=== PATIENT | male | born 1955 | race Caucasian/White ===

== ENCOUNTER 2018-01-24 03:15 | Emergency (ER) | payer SELFPAY ==
[2018-01-24 03:23] VITALS: TEMP 97.9
[2018-01-24 04:03] LABS: PLATELET COUNT 211 10^3/uL (150-400)
--- NOTE | 2018-01-24 04:35 | EDPHY ---
H & P Stated Complaint: weeping wounds bilat legs Time Seen by Provider: 01/24/18 04:01 HPI/ROS: HPI The patient presents brought in by ambulance for pain from his leg wounds. He says he has had these for several years, though while at the long-term today the pain got worse in his right leg greater than left. It is achy in nature, moderate in severity and improved with elevation. He has not had any new leg swelling, new redness, fevers or chills. He has not had a fall recently. He does say about 2 weeks ago he fell out of his motorized scooter and thinks this could be contributing to his pain currently. He used to stay at a long-term in [place] and follow up with a wound care doctor there, he is not seeing anyone locally for his wounds and therefore has not been putting on dressings regularly. REVIEW OF SYSTEMS Constitutional: No fever, no chills. Eyes: No discharge. ENT: No sore throat. Cardiovascular: No chest pain, no palpitations. Respiratory: No cough, no shortness of breath. Gastrointestinal: No abdominal pain, no vomiting. Genitourinary: No hematuria. Musculoskeletal: No back pain. Skin: No rashes. Neurological: No headache. PMHx: Diabetes, hypertension, chronic venous stasis Soc Hx: Homeless, currently residing at [facility] PHYSICAL General Appearance: Alert, no distress Eyes: Pupils equal and round no pallor or injection ENT, Mouth: Mucous membranes moist Respiratory: There are no retractions, lungs are clear to auscultation Cardiovascular: Regular rate and rhythm Gastrointestinal: Abdomen is soft and non-tender, no masses, bowel sounds normal Neurological: A&O, moves all extremities Skin: Warm and dry, bilateral lower extremities with shiny erythema to both shins with plaques present anteriorly which are whitish in raised Musculoskeletal: Neck is supple non tender Extremities: symmetrical, full range of motion, 2+ DP pulses Psychiatric: Patient is oriented X 3, there is no agitation Source: Patient Exam Limitations: No limitations - Personal History Current Tetanus/Diphtheria Vaccine: Yes Current Tetanus Diphtheria and Acellular Pertussis (TDAP): Yes - Medical/Surgical History Hx Asthma: Yes Hx Chronic Respiratory Disease: No Hx Diabetes: Yes Hx Cardiac Disease: No Hx Renal Disease: No Hx Cirrhosis: No Hx Alcoholism: No Hx HIV/AIDS: No Hx Splenectomy or Spleen Trauma: No Other PMH: DM, HTN, tonsillectomy - Social History Smoking Status: Current every day smoker Constitutional: Initial Vital Signs Temperature (C) 36.6 C 01/24/18 03:20 Heart Rate 89 01/24/18 03:20 Respiratory Rate 16 01/24/18 03:20 Blood Pressure 168/93 H 01/24/18 03:20 O2 Sat (%) 96 01/24/18 03:20 O2 Delivery Mode Room Air Allergies/Adverse Reactions: No Known Allergies Allergy (Unverified 01/24/18 03:25) Home Medications: Medication Instructions Recorded Atenolol 01/24/18 Levemir 01/24/18 Lisinopril 01/24/18 Medical Decision Making Differential Diagnosis: This is a 63-year-old man with homelessness, diabetes on insulin, hypertension, chronic venous stasis who presents with painful right greater than left lower extremity. On exam, he does have significant venous stasis changes, legs are warm with normal pulses and good sensation. There is no indication of cellulitis has there are no areas of warmth. There is no abscess given no areas of fluctuance. He does not have asymmetric edema making DVT unlikely. I feel his symptoms stem from his chronic wounds, his fall 2 weeks ago may have made his symptoms worse. He would benefit from wound care which he is not currently getting. 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 He is in agreement with this plan. I did check labs to evaluate for any signs of infection, WBC count was normal. Glucose was 300 with no anion gap. - Data Points Laboratory Results: Laboratory Results 01/24/18 03:35 01/24/18 03:35 01/24/18 01/24/18 01/24/18 03:35 03:35 03:35 WBC 7.28 10^3/uL 10^3/uL (3.80-9.50) RBC 4.72 10^6/uL 10^6/uL (4.40-6.38) Hgb 14.1 g/dL g/dL (13.7-17.5) Hct 42.0 % % (40.0-51.0) MCV 89.0 fL fL (81.5-99.8) MCH 29.9 pg pg (27.9-34.1) MCHC 33.6 g/dL g/dL (32.4-36.7) RDW 13.3 % % (11.5-15.2) Plt Count 211 10^3/uL 10^3/uL (150-400) MPV 11.5 fL fL (8.7-11.7) Neut % (Auto) 68.8 % % (39.3-74.2) Lymph % (Auto) 20.5 % % (15.0-45.0) [place] % (Auto) 9.2 % % (4.5-13.0) Eos % (Auto) 0.8 % % (0.6-7.6) Baso % (Auto) 0.3 % % (0.3-1.7) Nucleat RBC Rel Count 0.0 % % (0.0-0.2) Absolute Neuts (auto) 5.01 10^3/uL 10^3/uL (1.70-6.50) Absolute Lymphs (auto) 1.49 10^3/uL 10^3/uL (1.00-3.00) Absolute Monos (auto) 0.67 10^3/uL 10^3/uL (0.30-0.80) Absolute Eos (auto) 0.06 10^3/uL 10^3/uL (0.03-0.40) Absolute Basos (auto) 0.02 10^3/uL 10^3/uL (0.02-0.10) Absolute Nucleated RBC 0.00 10^3/uL 10^3/uL (0-0.01) Immature Gran % 0.4 % % (0.0-1.1) Immature Gran # 0.03 10^3/uL 10^3/uL (0.00-0.10) VBG Lactic Acid 1.5 mmol/L mmol/L (0.7-2.1) Sodium 136 mEq/L mEq/L (135-145) Potassium 4.2 mEq/L mEq/L (3.5-5.2) Chloride 98 mEq/L mEq/L (97-110) Carbon Dioxide 25 mEq/l mEq/l (22-31) Anion Gap 13 mEq/L mEq/L (8-16) BUN 17 mg/dL mg/dL (7-23) Creatinine 0.7 mg/dL mg/dL (0.7-1.3) Estimated GFR > 60 Glucose 304 mg/dL H mg/dL (70-100) Calcium 8.6 mg/dL mg/dL (8.5-10.4) Total Bilirubin 0.7 mg/dL mg/dL (0.1-1.4) AST 16 IU/L L IU/L (17-59) ALT 27 IU/L IU/L (21-72) Alkaline Phosphatase 90 IU/L IU/L (38-126) Total Protein 6.2 g/dL L g/dL (6.3-8.2) Albumin 3.5 g/dL g/dL (3.5-5.0) Departure - Departure Disposition: Home, Routine, Self-Care Clinical Impression: Venous stasis dermatitis of lower extremity Hyperglycemia due to type 2 diabetes mellitus 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 We would like you to follow up with Dr. Bustillos in the [facility]. Please call her to arrange for an appointment to be seen. You should return to the emergency department if your worse in any way. Referrals: Lori Bustillos MD [Medical Doctor] - As per Instructions
[2018-01-24 07:08] VITALS: BP 114/85; PULSE 72; RESP 16; O2SAT 95
== END 2018-01-24 07:35 | disposition home or self-care (01) ==
DX: I87.8 Other specified disorders of veins (principal); E11.65 Type 2 diabetes mellitus with hyperglycemia; I10 Essential (primary) hypertension; J45.909 Unspecified asthma, uncomplicated; F17.200 Nicotine dependence, unspecified, uncomplicated; Z79.4 Long term (current) use of insulin

== ENCOUNTER 2018-02-03 18:31 | Inpatient (IN) | payer OTHER ==
[2018-02-03] MEDS ORDERED: VANCOMYCIN HCL/NORMAL SALINE 250 ML IV ONE (18:47)
--- NOTE | 2018-02-03 18:52 | EDPHY ---
H & P Stated Complaint: LEG INFECTIONS Time Seen by Provider: 02/03/18 18:31 HPI/ROS: CHIEF COMPLAINT: "My legs hurt" HISTORY OF PRESENT ILLNESS: 63-year-old homeless male history of uncontrolled diabetes, peripheral vascular disease, called 911 from the [facility] because of progressively worsening bilateral lower extremity pain, foul smell, decreased ability to ambulate. He ambulates at baseline with an electric scooter, is able to transfer and walk few steps however in this has become progressively worse. Patient was seen the ER approximately 9 days ago for same complaint states that in the past 3 days has become progressively worse. Denies fever chills. Denies flu-like symptoms. Denies nausea or vomiting. PRIMARY CARE PROVIDER: None REVIEW OF SYSTEMS: A ten point review of systems was performed and is negative with the exception of the items mentioned in the HPI PAST MEDICAL & SURGICAL HISTORY: Uncontrolled diabetes. Peripheral vascular disease. Limited mobility. SOCIAL HISTORY:Homeless. Daily tobacco abuse PHYSICAL EXAM (Prior to examination, patient consented to physical exam, hands were washed and my usual and customary physical exam procedures followed) 1) GENERAL: Obese, poorly kept, foul smelling, dirty 2) HEAD: Normocephalic, atraumatic 3) HEENT: Pupils equal, round, reactive to light bilaterally. Sclera anicteric. 4) NECK: Full range of motion, no meningeal signs. 5) LUNGS: Clear auscultation bilaterally, no wheezes, no rhonchi, no retractions. 6) HEART: Regular rate and rhythm, no murmur, no heave, no gallop. 7) ABDOMEN: No guarding, no rebound, no focal tenderness, negative McBurney's, negative Parker's, negative Rovsing's, negative peritoneal sign, 8) MUSCULOSKELETAL: Bilateral lower extremities: Positive fetid odor, Beefy red induration with necrotic tissue overlying the distal lower extremities, foul smell. No crepitus. DP and PT pulses are present and brisk. Distal capillary refill is brisk. Bilateral trench foot. 9) BACK: No CVA tenderness, no midline vertebral tenderness, no fluctuance, no step-off, no obvious trauma, no visual or palpable abnormality. 10) SKIN: No rash, no petechiae. 11) Psychiatric: Patient is oriented X 3, there is no agitation. DIFFERENTIAL DIAGNOSIS: In no particular include but limited to cellulitis, necrotizing fasciitis, abscess, DVT, osteomyelitis s - Personal History Current Tetanus/Diphtheria Vaccine: Unsure - Medical/Surgical History Hx Asthma: Yes Hx Chronic Respiratory Disease: No Hx Diabetes: Yes Hx Cardiac Disease: No Hx Renal Disease: No Hx Cirrhosis: No Hx Alcoholism: No Hx HIV/AIDS: No Hx Splenectomy or Spleen Trauma: No Other PMH: DM, HTN, tonsillectomy - Social History Smoking Status: Current every day smoker Constitutional: Initial Vital Signs Temperature (C) 36.9 C 02/03/18 18:36 Heart Rate 114 H 02/03/18 18:36 Respiratory Rate 16 02/03/18 18:36 Blood Pressure 171/98 H 02/03/18 18:36 O2 Sat (%) 97 02/03/18 18:36 O2 Delivery Mode Room Air Allergies/Adverse Reactions: No Known Allergies Allergy (Unverified 01/24/18 03:25) Home Medications: Medication Instructions Recorded Acetaminophen [Tylenol ES 500 mg 500 mg PO Q6 PRN 02/03/18 (*)] Albuterol [Ventolin Hfa Inhaler] 1 - 2 puffs IH Q4 PRN 02/03/18 Atenolol [Tenormin 50 mg (*)] 50 mg PO DAILY 02/03/18 Gabapentin [Neurontin 300 MG (*)] 300 mg PO BID 02/03/18 Insulin Detemir [Levemir Flextouch] 40 unit SQ BID 02/03/18 Lidocaine [Lidoderm] 1 - 2 each TP DAILY PRN 02/03/18 Lisinopril [Zestril 20 mg (*)] 20 mg PO DAILY 02/03/18 Metformin HCl [Metformin 1000 mg] 1,000 mg PO BID 02/03/18 traMADol [Ultram 50 mg (*)] 25 mg PO BID 02/03/18 Medical Decision Making - Diagnostics Imaging Results: Imaging Impressions Extremity Venous Study 02/03/18 18:44 Impression: No evidence of deep vein thrombosis in either lower extremity from the groin to the popliteal fossae. Images reviewed myself ED Course/Re-evaluation: 6:40 p.m.: Patient greeted on arrival by EMS. Discussed this case with Dr. Lazaro Valdez in the ER, secondary supervising physician. I reviewed old medical records. This is a homeless individual with uncontrolled diabetes, cellulitis, peripheral vascular disease, necrotic tissue to his bilateral lower extremities. Recommended admission. Will obtain cultures, initiate vancomycin. Doubt necrotizing fasciitis at this time. He has been informed that he is at risk of this. Patient has a history of chronic tobacco abuse. I spent greater than 3 min discussing tobacco cessation with the patient. 7:10 p.m.: Phone consultation with Dr. Narinder Courtney who will admit patient primarily. Requests surgical evaluation for more than likely debridement, also requests Invanz being added to his medication regimen. 7:13 p.m.: Phone consultation with Dr. Sean Aguilera who will consult for General surgery. Bilateral lower extremity x-rays will be obtained to evaluate for subcutaneous gas. - Data Points Laboratory Results: Laboratory Results 02/03/18 18:56 02/03/18 18:56 02/03/18 02/03/18 02/03/18 18:56 18:56 18:56 WBC 8.71 10^3/uL 10^3/uL (3.80-9.50) RBC 5.47 10^6/uL 10^6/uL (4.40-6.38) Hgb 16.0 g/dL g/dL (13.7-17.5) Hct 49.0 % % (40.0-51.0) MCV 89.6 fL fL (81.5-99.8) MCH 29.3 pg pg (27.9-34.1) MCHC 32.7 g/dL g/dL (32.4-36.7) RDW 13.4 % % (11.5-15.2) Plt Count 269 10^3/uL 10^3/uL (150-400) MPV 11.6 fL fL (8.7-11.7) Neut % (Auto) 78.1 % H % (39.3-74.2) Lymph % (Auto) 14.9 % L % (15.0-45.0) [place] % (Auto) 5.6 % % (4.5-13.0) Eos % (Auto) 0.6 % % (0.6-7.6) Baso % (Auto) 0.2 % L % (0.3-1.7) Nucleat RBC Rel Count 0.0 % % (0.0-0.2) Absolute Neuts (auto) 6.80 10^3/uL H 10^3/uL (1.70-6.50) Absolute Lymphs (auto) 1.30 10^3/uL 10^3/uL (1.00-3.00) Absolute Monos (auto) 0.49 10^3/uL 10^3/uL (0.30-0.80) Absolute Eos (auto) 0.05 10^3/uL 10^3/uL (0.03-0.40) Absolute Basos (auto) 0.02 10^3/uL 10^3/uL (0.02-0.10) Absolute Nucleated RBC 0.00 10^3/uL 10^3/uL (0-0.01) Immature Gran % 0.6 % % (0.0-1.1) Immature Gran # 0.05 10^3/uL 10^3/uL (0.00-0.10) PT 11.6 SEC L SEC (12.0-15.0) INR 0.83 (0.83-1.16) APTT 26.6 SEC SEC (23.0-38.0) VBG Lactic Acid Sodium 136 mEq/L mEq/L (135-145) Potassium 4.4 mEq/L mEq/L (3.5-5.2) Chloride 99 mEq/L mEq/L (97-110) Carbon Dioxide 22 mEq/l mEq/l (22-31) Anion Gap 15 mEq/L mEq/L (8-16) BUN 13 mg/dL mg/dL (7-23) Creatinine 0.8 mg/dL mg/dL (0.7-1.3) Estimated GFR > 60 Glucose 513 mg/dL H* mg/dL (70-100) Calcium 8.7 mg/dL mg/dL (8.5-10.4) Total Bilirubin 0.6 mg/dL mg/dL (0.1-1.4) 02/03/18 18:56 WBC RBC Hgb Hct MCV MCH MCHC RDW Plt Count MPV Neut % (Auto) Lymph % (Auto) [place] % (Auto) Eos % (Auto) Baso % (Auto) Nucleat RBC Rel Count Absolute Neuts (auto) Absolute Lymphs (auto) Absolute Monos (auto) Absolute Eos (auto) Absolute Basos (auto) Absolute Nucleated RBC Immature Gran % Immature Gran # PT INR APTT VBG Lactic Acid 2.6 mmol/L H mmol/L (0.7-2.1) Sodium Potassium Chloride Carbon Dioxide Anion Gap BUN Creatinine Estimated GFR Glucose Calcium Total Bilirubin Medications Given: Acetaminophen (Tylenol) 650 mg PO Q4HRS PRN PRN Reason: Pain, Mild/Fever, Can Take PO Stop: 08/02/18 20:20 Last Admin: 02/03/18 21:54 Dose: 650 mg Sodium Chloride (Ns) 1,000 mls @ 200 mls/hr IV CONT KAELA Stop: 08/02/18 20:29 Last Admin: 02/03/18 21:41 Dose: 1,000 mls Insulin Glargine (Lantus Syringe) 20 units SC HS KAELA Stop: 08/02/18 20:59 Last Admin: 02/03/18 21:40 Dose: 20 units Discontinued Medications Ertapenem (Invanz) 1 gm IV ONCE ONE PRN Reason: Protocol Stop: 02/03/18 19:14 Last Admin: 02/03/18 19:23 Dose: 1 gm Hydromorphone HCl (Dilaudid) 1 mg IVP EDNOW ONE Stop: 02/03/18 19:34 Last Admin: 02/03/18 19:47 Dose: 1 mg Vancomycin/Sodium Chloride (Vancomycin 1 Gm (Premix)) 250 mls @ 250 mls/hr IV EDNOW ONE PRN Reason: Protocol Stop: 02/03/18 19:46 Last Admin: 02/03/18 19:17 Dose: 250 mls Sodium Chloride (Ns) 1,000 mls @ 0 mls/hr IV ONCE ONE PRN Reason: Wide Open Stop: 02/03/18 20:10 Last Admin: 02/03/18 20:22 Dose: 1,000 mls Departure - Departure Disposition: [facility] Clinical Impression: Bilateral trench foot, Bilateral lower leg cellulitis, Hyperglycemia, Homeless Uncontrolled diabetes mellitus Qualifiers: Diabetes mellitus type: type 2 Diabetes mellitus half-way insulin use: without half-way use Diabetes mellitus complication status: with skin complications Diabetes mellitus complication detail: with other skin complication Qualified Code(s): E11.628 - Type 2 diabetes mellitus with other skin complications; E11.65 - Type 2 diabetes mellitus with hyperglycemia; E11.65 - Type 2 diabetes mellitus with hyperglycemia; E11.65 - Type 2 diabetes mellitus with hyperglycemia; E11.65 - Type 2 diabetes mellitus with hyperglycemia Condition: Fair
[2018-02-03 19:12] LABS: PLATELET COUNT 269 10^3/uL (150-400)
[2018-02-03] MEDS ORDERED: ERTAPENEM 1 GM VIAL IV ONE (19:13)
[2018-02-03] MEDS ORDERED: ERTAPENEM 1 GM VIAL ONE (19:21)
[2018-02-03 19:24] LABS: INR 0.83 (0.83-1.16); PROTIME(PATIENT) 11.6 SEC (12.0-15.0)
[2018-02-03] MEDS ORDERED: HYDROmorphONE/DILAUDID 1 MG/ML INJ IVP ONE (19:33)
[2018-02-03] MEDS ORDERED: SILVER SULFADIAZINE 400 GM JAR TP SCH (19:45)
[2018-02-03] MEDS ORDERED: SILVER SULFADIAZINE 50 GM JAR TP SCH (19:45)
[2018-02-03] MEDS ORDERED: HYDROmorphONE/DILAUDID 2 MG/ML INJ ONE (19:46)
[2018-02-03] MEDS ORDERED: NS 1,000 ML IV ONE (20:09)
[2018-02-03] MEDS ORDERED: D50W 25 GM/50 ML VIAL IVP PRN (20:19)
[2018-02-03] MEDS ORDERED: ONDANSETRON DISINTEGRATING 4 MG TAB PO PRN (20:21)
[2018-02-03] MEDS ORDERED: ONDANSETRON 4 MG/2 ML VIAL IVP PRN (20:21)
--- NOTE | 2018-02-03 20:52 | GCON ---
[f rep st] CONSULTATION WOUND CARE CONSULTATION REFERRING PHYSICIAN: Emergency Department HISTORY: The patient is a 63-year-old homeless diabetic male with multiple medical issues. I was asked to see him because of the cellulitis of his legs. On entering the room, there was a very distinct foul odor coming from his legs. Using a 4 x 4, I was able to debride them fairly extensively, getting rid of the eschar down to good granulation tissue. The volume of eschar was greater on the right, where it was three-quarters circumferential, going from just above the ankle to two-thirds of the way to the knee. On the left, it was approximately two-thirds that size. A culture was obtained of the deepest tissue. X-rays have been ordered to look for signs of gas in the tissue. Those have not been completed yet. Ultrasound has been ordered to look for signs of DVT. In the interim, I have dressed his legs with Silvadene covered with 4 x 4's and Kerlix gauze from the toes to the knee and then wrapped with an Jose Armando wrap from the toes to the knee as well. I recommend that we optimize him from the medical standpoint, and Dr. Courtney is working on that. The x-rays will be reviewed. I suspect that this will be just superficial infection. I will plan to debride the leg more tomorrow. I suspect the Silvadene will loosen up some of the eschar and I suspect I will be able to do the debridement at the bedside without going to the operating room. I recommend that to optimize oxygen delivery to the wound that we elevate the lower legs to the level of his heart and that we push his systemic oxygen saturation to 98%. /[id number]/MODL MTDD
--- NOTE | 2018-02-03 20:57 | GHP ---
[f rep st] HISTORY AND PHYSICAL DATE OF ADMISSION: 02/03/2018 HISTORY OF PRESENT ILLNESS: The patient is a pleasant 63-year-old gentleman with a history of diabet es, off all medicines for the last couple of months, who presents with lower extremity ulcers. He carey s had fever and shaking chills over the last couple of days. He was seen here 10 days ago with simil ar symptoms with what the ER doctor thought was venous stasis changes without evidence of cellulitis. At that point in time, no antibiotics were prescribed. He returns today with worsening lower extremi ty swelling as well as fevers. The ER provider noted a remarkably foul odor associated with his legs . The patient denies cough, shortness of breath, diarrhea, nausea, vomiting. REVIEW OF SYSTEMS: Complete 10-point review of systems conducted negative as noted in the HPI. PAST MEDICAL HISTORY: 1. Type 2 diabetes for about 15 years. 2. Tobacco use. 3. Hypertension. OUTPATIENT MEDICINES: Atenolol, Levemir, lisinopril. He says he has not taken any of these in month s. SOCIAL HISTORY: He is currently homeless. He smokes cigarettes. Drinks alcohol infrequently. FAMILY HISTORY: Reviewed and unremarkable. PHYSICAL EXAMINATION: VITAL SIGNS: Temp 36.9. Blood pressure 171/98. Pulse 114; he was in the 70s last time. Breathing 16 times a minute. 97% on room air. GENERAL: No acute distress. HEENT: Scl erae anicteric. Oropharynx clear. Mucous membranes are moist. NECK: Supple. No lymphadenopathy o r JVD. LUNGS: Clear to auscultation bilaterally. HEART: S1, S2. ABDOMEN: Soft, nontender, nondi stended. LOWER EXTREMITIES: Are bandaged. They have been cleaned and debrided by the surgeon, so t hey are freshly bandaged. I have not unwrapped them. NEUROLOGIC: Grossly nonfocal. LABS: White count 8.7, hematocrit 49, platelets are 269,000. Coags are normal. Venous lactate is 2 .6; repeat is pending. Sodium 136, potassium 4.4, chloride 99, bicarb 22, BUN 13, creatinine 0.8, gl ucose 513. I have discussed the case with Don Garza as well as Dr. Nikhil Aguilera of Surgery. ASSESSMENT AND PLAN: This is a 63-year-old gentleman with likely cellulitis and sepsis. 1. Sepsis. This is evidenced by source of infection in his legs, tachycardia, and elevated lactate. He has been hydrated. We will repeat a lactate now. Blood cultures have been drawn. He has been started on antibiotics. 2. Cellulitis. This is likely secondary to skin breakdown, diabetes, and venous stasis. Vancomycin and ertapenem have been started. He has been seen by General Surgery. Film is pending. 3. Venous stasis. I will check an echocardiogram. 4. Diabetes. He has uncontrolled diabetes. Blood sugar is 500 here. We will check hemoglobin A1c. 5. Prophylaxis. Low molecular heparin. 6. Disposition: Inpatient status. /[id number]/MODL
[2018-02-03] MEDS ORDERED: INSULIN GLARGINE 100 UNITS/ML UNIT SC SCH (21:00)
[2018-02-03] MEDS: NS 1,000 ML IV SCH (21:41)
[2018-02-03] MEDS: ACETAMINOPHEN 325 MG TAB PO PRN (21:54)
[2018-02-03] MEDS: GABAPENTIN 300 MG CAP PO SCH (22:25)
[2018-02-03] MEDS ORDERED: traMADol 50 MG TAB ONE (22:29)
[2018-02-03] MEDS: traMADol 50 MG TAB PO SCH (22:30)
--- NOTE | 2018-02-04 00:31 | PDMN ---
Medical Necessity Medical necessity: C/M review: Patient meets INPT criteria under [facility] M-70 Cellulitis: Acute and persistent sepsis, bilateral lower extremity cellulitis, bilateral lower extremity ulcers, fevers venous stasis, uncontrolled diabetes, VBG lactic acid 2.6, glucose 513 requiring General Surgery consult, planned Wound Care consult, echocardiogram, ongoing IV Invanz daily, IV Vancomyciin Q 8 hrs., IV NS 200 ml/hr infusion, acute inpt PT/OT, comorbid ED visit 10 days prior to this admission with what ER MD thought was venous stasis changed without evidence of cellulitis, type 2 diabetes, tobacco use, hypertension, patient off all medicines for the last couple of months, homelessness. MD anticipates > 2 MN LOS for ongoing med nec for eval and TX of above.
[2018-02-04] MEDS: NS 1,000 ML IV SCH (02:37)
[2018-02-04] MEDS: VANCOMYCIN 1.25 GM in NS 250 ML IV SCH ×3 (02:37→19:16)
[2018-02-04] MEDS: INSULIN LISPRO 100 UNIT/ML SC SCH ×3 (07:50→19:02)
[2018-02-04] MEDS: traMADol 50 MG TAB PO SCH ×2 (08:24→20:03)
[2018-02-04] MEDS: LISINOPRIL 20 MG TAB PO SCH (08:24)
[2018-02-04] MEDS: GABAPENTIN 300 MG CAP PO SCH ×2 (08:25→20:03)
[2018-02-04] MEDS: ERTAPENEM 1 GM VIAL IV SCH (08:27)
[2018-02-04] MEDS: ATENOLOL 25 MG TAB PO SCH (08:30)
[2018-02-04] MEDS ORDERED: HYDROmorphone HCL/NS 0.5 MG/ML SYR IVP ONE ×4 (08:45→21:30)
[2018-02-04] MEDS ORDERED: INSULIN GLARGINE 100 UNITS/ML UNIT SC SCH (09:00)
[2018-02-04] MEDS ORDERED: ATENOLOL 50 MG TAB PO SCH (09:00)
[2018-02-04] MEDS ORDERED: ENOXAPARIN 40 MG/0.4 ML SYR SC SCH (09:00)
[2018-02-04] MEDS ORDERED: SILVER SULFADIAZINE 50 GM JAR TP SCH (09:00)
[2018-02-04] MEDS ORDERED: NON-FORMULARY NEW DRUG (Metformin Hcl [Metformin 1000 Mg] 1,000 MG) PO SCH (09:00)
[2018-02-04] MEDS ORDERED: INSULIN GLARGINE 100 UNITS/ML SYRINGE SC ONE (09:30)
[2018-02-04] MEDS: INSULIN GLARGINE 100 UNITS/ML UNIT SC SCH ×2 (09:31→20:03)
--- NOTE | 2018-02-04 09:36 | ASMTCMCOM ---
CM Note CM Note Notes: 63yr old male admitted for Bilateral LE Cellulitis, Hyperglycemia. He has a Hx of homelessness, DM, HTN and a smoker. Patient to have his legs debrided. Therapies to eval. CM to follow for discharge needs. Date Signed: 02/04/2018 09:36 AM Electronically Signed By:Winsome Marsh LCSW
--- NOTE | 2018-02-04 09:44 | SOAPPROG ---
SOAP Progress Note Assessment/Plan: 02/04/18 09:35 02/04/2018 Assessment: Cellulitis on both lower extremities- Dramatic improvement. Unfortunately swab culture from last night appears to have been misplaced. New culture obtained this AM. Leg edema decreased markedly with antonio wrap and elevation. Eschar remains imbedded over ~ 10 cm2. Will continue Silvadene. Plan: Will continue Silvadene and dbride later today again. Continue elevation, antonio wraps and pushing sat to 98% 02/04/18 09:44 Subjective: legs feel better Objective: Vital Signs Temp Pulse Resp BP Pulse Ox 37.3 C 124 H 18 115/82 H 95 02/04/18 04:00 02/04/18 04:00 02/04/18 04:00 02/04/18 04:00 02/04/18 04:00 Laboratory Results 02/04/18 04:47 02/03/18 02/04/18 02/05/18 05:59 05:59 05:59 Intake Total 3712 Output Total 1200 Balance 2512 PT 11.6 SEC (12.0-15.0) L 02/03/18 18:56 INR 0.83 (0.83-1.16) 02/03/18 18:56 Physical Exam - Physical Exam General Appearance: alert, mild distress Extremities: other (Bilateral lower leg cellulitis are dramatically improved, Eschar is debrided (~ 10 cm2 remains)) ICD10 Worksheet Patient Problems: Problems Problem Status Onset Bilateral lower leg cellulitis Acute Homeless Acute Hyperglycemia Acute Uncontrolled diabetes mellitus Acute
[2018-02-04] MEDS: ACETAMINOPHEN 325 MG TAB PO PRN ×2 (10:50→20:03)
--- NOTE | 2018-02-04 11:05 | WOCRNPDOC ---
WOCRN Advanced Assessment Note - Skin Integrity Problem, Advanced Assess Bilateral Lower Leg Dressing Type: Jose Armando Bandage, Gauze, Kerlix, Other Other Dressing Type: Silvadene cream per Dr. Aguilera Exudate Amount: Minimal Exudate Color: Reddish/Yellow Exudate Characteristic(s): Serosanguinous Integumentary Issue Intervention: Dressing Changed Radhika Wound Tissue: Macerated (immediately periwound), Swollen (edema improving) , Venous Dermatitis, Painful/Tender Radhika Wound Swelling: Moderate Wound Bed Color: Black, Red, Yellow Wound Bed Constitution: Red/[place] - Non Granular Tissue, Mixed Loose & Adhered Slough/Eschar Wound Edges: Irregular Site Odor: None Skin Integrity Problem Comment: Significant wounds, primarily gaiter and anterior aspects of lower legs. Wounds debrided by Dr. Aguilera yesterday (02/03) in ED, and subsequently treated w/ Silvadene cream BID. Significant slough/ eschar removed w/ gauze at the bedside today. Wound beds predominantly non- granulating tissue, w/ 10-20% eschar/slough remianing, worse on R than L. Another wound culture obtained from [facility] and sent to lab. Per Ale, will continue w/ Silvadene and Kerlix/Jose Armando wraps BID until Monday, at which time wound care will evaluate. Suspect patient has had some underlying chronic venous issues. Will need significant ongoing wound care and compression tx. Wound RN will round again on Tuesday 02/06.
--- NOTE | 2018-02-04 12:09 | CPEKG ---
Heart Rate: 73 RR Interval: 822 P-R Interval: 172 QRSD Interval: 146 QT Interval: 496 QTC Interval: 547 P [place]: 29 QRS [place]: -6 T Wave [place]: 186 EKG Severity - ABNORMAL ECG - EKG Impression: SINUS RHYTHM EKG Impression: LEFT BUNDLE BRANCH BLOCK Electronically Signed By: Froilan Guzman 05-Feb-2018 07:46:08
[2018-02-04] MEDS ORDERED: MAGNESIUM HYDROXIDE 30 ML UDCUP PO PRN (13:47)
[2018-02-04] MEDS ORDERED: LACTULOSE 20 GM/30 ML UDCUP PO PRN (13:47)
[2018-02-04] MEDS ORDERED: BISACODYL 10 MG SUPP PR PRN (13:47)
[2018-02-04] MEDS ORDERED: POLYETHYLENE GLYCOL 3350 17 GM PKT PO PRN (13:47)
--- NOTE | 2018-02-04 13:53 | HOSPPROG ---
Hospitalist Progress Note Assessment/Plan: Assessment: 63-year-old male presents with sepsis and acute cellulitis and diabetic wound infection Plan: 1. Cellulitis. Present on admission. Acute, new problem this provider, further workup indicated. Located on the bilateral lower extremities in the setting of chronic stasis dermatitis and wound development secondary to uncontrolled diabetes -continue on vancomycin and ertapenem, given his uncontrolled diabetes -send wound cultures, currently gathering during wound debridement today -continue monitor white blood cell count -x-ray demonstrating no evidence of gas, personally interpreted -ultrasound demonstrating no DVT -discussed with Dr. Nikhil Aguilera who advises he will continue surgical wound assessments and wound care involved in today's debridement -will get Infectious Disease consultation tomorrow for ongoing inpatient antibiotic narrowing and outpatient treatment 2. Uncontrolled diabetes mellitus type 2 with hyperglycemia. Patient has recently been off of all of his anti glycemic agents secondary to cost, not currently enrolled with [facility], previously taking Levemir 40 twice a day and metformin -glucose level 500 on presentation without evidence of DKA -placed on insulin sliding scale, up titrate Lantus to 25 units twice daily -hold on initiating metformin given patient's presenting lactic acidosis 3. Metabolic acidosis. Acute, secondary to lactic acid, secondary to sepsis, cleared with IV fluids and treatment of sepsis 4. Sepsis. Present on admission, evidenced by autonomic dysregulation in the setting of infection with evidence of end-organ failure notably lactic acidosis -lactic acidosis cleared, tachycardia persists -EKG demonstrates left bundle branch block but no atrial arrhythmia, personally interpreted -status post IV fluids and empiric antibiotics 5. Left bundle branch block. Chronic, per patient Diet. Diabetic Prophylaxis. High risk patient, Lovenox 40 Code. Full Disposition. Anticipated discharge uncertain this time, ongoing surgical wound care, transfer to [facility] Subjective: Patient reports ongoing pain is bilateral lower extremities, responsive to IV pain medication Objective: Vital Signs Temp Pulse Resp BP Pulse Ox 37.2 C 78 19 105/65 98 02/04/18 12:00 02/04/18 12:00 02/04/18 12:00 02/04/18 12:00 02/04/18 12:00 Laboratory Results 02/04/18 04:47 02/03/18 02/04/18 02/05/18 05:59 05:59 05:59 Intake Total 3712 Output Total 1200 375 Balance 2512 -375 PT 11.6 SEC (12.0-15.0) L 02/03/18 18:56 INR 0.83 (0.83-1.16) 02/03/18 18:56 - Physical Exam Constitutional: chronically ill appearing, uncomfortable, unkempt, No not in pain (Moderate) Cardiovascular: tachycardia, edema (Trace bilateral lower extremities), No systolic murmur, No irregularly irregular Respiratory: no respiratory distress, no rales or rhonchi, clear to auscultation Gastrointestinal: normoactive bowel sounds, soft, non-tender abdomen, no palpable masses, No distension Skin: other (Contracted skin on his bilateral lower extremities, evidence of stasis dermatitis, ulceration along the anterolateral surface of the left lower extremity with profuse bleeding on debridement) Neurologic: AAOx3, sensation intact bilaterally, No facial droop Psychiatric: interacting appropriately, not anxious, not encephalopathic, thought process linear ICD10 Worksheet Patient Problems: Problems Problem Status Onset Bilateral lower leg cellulitis Acute Hyperglycemia Acute Uncontrolled diabetes mellitus Acute Homeless Acute
--- NOTE | 2018-02-04 15:49 | ASMTCMCOM ---
CM Note CM Note Notes: Therapies recommending that patient go to a SNF for wound care. Left message for Medicaid Specialist to do a Medicaid referral and LTC application. Referral sent to [facility]. Date Signed: 02/04/2018 03:48 PM Electronically Signed By:Winsome Marsh LCSW
[2018-02-04] MEDS: oxyCODONE IR 5 MG TAB PO PRN (16:14)
[2018-02-04] MEDS: SENNOSIDES/DOCUSATE SODIUM TAB PO SCH ×2 (16:14→20:03)
--- NOTE | 2018-02-04 16:38 | ASMTCMCOM ---
CM Note CM Note Notes: Did not as yet send any referrals. Patient has worked in the past and may be collecting Social Security Disability, so may be on Medicare. If on Medicare, he would have more SNF choices to choose from. CM to check into this on Monday. [id number] sent to [facility]. Date Signed: 02/04/2018 04:37 PM Electronically Signed By:Winsome Marsh LCSW
[2018-02-04] MEDS: SILVER SULFADIAZINE 400 GM JAR TP SCH (20:04)
[2018-02-04] MEDS ORDERED: HYDROmorphONE/DILAUDID 2 MG/ML INJ ONE (21:25)
[2018-02-05] MEDS: VANCOMYCIN 1.25 GM in NS 250 ML IV SCH ×2 (02:26→11:08)
[2018-02-05] MEDS: NS 1,000 ML IV SCH (02:30)
[2018-02-05] MEDS: ACETAMINOPHEN 325 MG TAB PO PRN ×2 (03:46→11:08)
[2018-02-05 04:11] LABS: PLATELET COUNT 182 10^3/uL (150-400)
[2018-02-05] MEDS: INSULIN LISPRO 100 UNIT/ML SC SCH ×3 (07:39→17:25)
[2018-02-05] MEDS: GABAPENTIN 300 MG CAP PO SCH ×2 (08:12→20:19)
[2018-02-05] MEDS: LISINOPRIL 20 MG TAB PO SCH (08:12)
[2018-02-05] MEDS: oxyCODONE IR 5 MG TAB PO PRN ×4 (08:12→21:28)
[2018-02-05] MEDS: ATENOLOL 25 MG TAB PO SCH (08:13)
[2018-02-05] MEDS: traMADol 50 MG TAB PO SCH ×2 (08:13→20:19)
[2018-02-05] MEDS: ERTAPENEM 1 GM VIAL IV SCH (08:25)
[2018-02-05] MEDS: SENNOSIDES/DOCUSATE SODIUM TAB PO SCH ×2 (09:32→20:19)
--- NOTE | 2018-02-05 09:36 | ECHO ---
[email or web address] [address] [address] Main: [phone] Fax: Transthoracic Echocardiogram Name: DELPHINE LAGUNAS MR#: [id number] Study Date: 02/04/2018 Study Time: 11:39 AM Date of : 1955 Age: 63 year(s) Height: 182.9 cm (72 in.) Weight: 113.85 kg (251 lb.) BSA: 2.35 m2 Gender: Male Examination: Echo Indication: Venous Stasis Image Quality: Contrast: Requested by: Narinder Courtney BP: 130 mmHg/72 mmHg Heart Rate: Rhythm: Indication: Venous Stasis Procedure Staff Health Information Tech: Reuben Jacinto RDCS Reading Physician: Gabriella Henley MD Requesting Provider: Conclusions: Normal size left ventricle. No LV hypertrophy. Moderately reduced systolic LV function. The ejection fraction is estimated to be 35-40 %. There is moderate global hypokinesis and paradoxical septal motion consistent with conduction abnormality. EF is 35-40. Normal size right ventricle. Normal RV function. No significant valvular disease. No prior echo Measurements: Chambers Valvular Assessment AV/MV Valvular Assessment TV/PV Normal Normal Normal Name Value Range Name Value Range Name Value Range Ao Blessing (MM): 3.3 cm (2.2 cm-3.7 AV Vmax: 1.10 m/s (1 m/s-1.7 PV Vmax: 0.88 m/s (0.6 m/s-0.9 cm) m/s) m/s) IVSd (2D): 1.0 cm (0.6 cm-1.1 AV maxP mmHg ( - ) PV PGmax: 3 mmHg ( - ) cm) LVOT Vmax: 0.60 m/s (0.7 m/s-1.1 LVDd (2D): 4.9 cm (4.2 cm-5.9 m/s) cm) MV E Vmax: 0.62 m/s ( - ) LVDs (2D): 4.3 cm (2.1 cm-4 MV A Vmax: 0.67 m/s ( - ) cm) MV E/A: 0.93 ( - ) LVPWd (2D): 1.1 cm (0.6 cm-1 cm) EF Range: 35-40 % Continued Measurements: Chambers Valvular Assessment AV/MV Name Value Name Value Patient: DELPHINE LAGUNAS Study Date: 02/04/2018 Page 1 of 2 11:39 AM LADs Lon.8 cm MV E' Septal: 0.04 m/s LA Area: 18.0 cm2 MV E/E' Septal: 13.80 LA Volume: 52 ml LA Volume Index: 22.1 ml/m2 Findings: Left Ventricle: Normal size left ventricle. No LV hypertrophy. Moderately reduced systolic LV function. The ejection fraction is estimated to be 35-40 %. There is moderate global hypokinesis and paradoxical septal motion consistent with conduction abnormality. EF is 35-40. Right Ventricle: Normal size right ventricle. Normal RV function. Left Atrium: The left atrium is normal in size. Right Atrium: The right atrium is normal in size. Mitral Valve: The mitral valve is normal in appearance and function. Aortic Valve: The aortic valve is normal in appearance and function. Tricuspid Valve: The tricuspid valve is normal in appearance and function. Pulmonic Valve: The pulmonic valve is normal in appearance and function. Aorta: The aorta is normal. Pericardium: No pericardial effusion. (No Signature Object) Patient: DELPHINE LAGUNAS Study Date: 02/04/2018 Page 2 of 2 11:39 AM [id number]
[2018-02-05] MEDS: INSULIN GLARGINE 100 UNITS/ML UNIT SC SCH ×2 (10:21→22:15)
--- NOTE | 2018-02-05 10:25 | HOSPPROG ---
Hospitalist Progress Note Assessment/Plan: Assessment: 63-year-old male presents with sepsis, acute cellulitis and diabetic wound infection Plan: 1. Cellulitis. Present on admission. Located on the bilateral lower extremities in the setting of chronic stasis dermatitis and wound development secondary to uncontrolled diabetes -continue on vancomycin and ertapenem D#3, given his uncontrolled diabetes -sent wound cultures, pending results -continue monitor white blood cell count -x-ray demonstrating no evidence of gas -ultrasound demonstrating no DVT -discussed with Dr. Monte, he will see patient and guide abx tx 2. Uncontrolled diabetes mellitus type 2 with hyperglycemia. Patient has recently been off of all of his anti-glycemic agents secondary to cost, not currently enrolled with [facility], previously taking Levemir 40 twice a day and metformin -cont lantus 25 bid and gauge effect -reintroduce metformin today 3. Metabolic acidosis. Acute, secondary to lactic acid, secondary to sepsis, cleared with IV fluids and treatment of sepsis 4. Sepsis. Present on admission, evidenced by autonomic dysregulation in the setting of infection with evidence of end-organ failure notably lactic acidosis , resolved -stop IVF today 5. Left bundle branch block. Chronic, per patient 6. HTN. Chronic, cont ACEi and bblocker Diet. Diabetic Prophylaxis. High risk patient, Lovenox 40 Code. Full Disposition. Anticipated discharge uncertain this time, ongoing surgical wound care, case mgmt looking into SNF for ongoing wound care/PT/RN. Subjective: patient w/ less pain in legs, eating/drinking, passing flatus but no BM Objective: Vital Signs Temp Pulse Resp BP Pulse Ox 36.7 C 86 16 127/97 H 95 02/05/18 07:53 02/05/18 07:53 02/05/18 07:53 02/05/18 07:53 02/05/18 07:53 Microbiology 02/04/18 09:30 Gram Stain - Final Leg - Swab Laboratory Results 02/05/18 03:44 02/05/18 03:44 02/04/18 02/05/18 02/06/18 05:59 05:59 05:59 Intake Total 3712 6723 Output Total 1200 2275 200 Balance 2512 4448 -200 PT 11.6 SEC (12.0-15.0) L 02/03/18 18:56 INR 0.83 (0.83-1.16) 02/03/18 18:56 - Physical Exam Constitutional: no apparent distress, not in pain, chronically ill appearing, obese, No uncomfortable Cardiovascular: regular rate and rhythym, no murmur, rub, or gallop, edema ( trace bilt LE), No irregularly irregular, No tachycardia Respiratory: expiratory wheeze (faint bilat), No reduced air movement, No inspiratory crackles, No bronchial breath sounds, No respiratory distress Gastrointestinal: normoactive bowel sounds, soft, non-tender abdomen, no palpable masses, distension (mild) Skin: other (bilat legs wrapped) Neurologic: AAOx3, sensation intact bilaterally, No weakness (motor 5/5 bilat toes) Psychiatric: not anxious, not encephalopathic, other (lethargic but arousable), No agitated ICD10 Worksheet Patient Problems: Problems Problem Status Onset Bilateral lower leg cellulitis Acute Hyperglycemia Acute Uncontrolled diabetes mellitus Acute Homeless Acute
[2018-02-05] MEDS: SILVER SULFADIAZINE 400 GM JAR TP SCH ×2 (10:56→21:29)
--- NOTE | 2018-02-05 11:31 | ASMTCMCOM ---
CM Note CM Note Notes: Patient has Medicare Part A so qualifies for SNF Rehab. Cancelled [facility] and our Medicaid specialist is working on Medicaid as a secondary ins. Contacted [facility] who will come and assess patient. Referral sent. Date Signed: 02/05/2018 11:30 AM Electronically Signed By:Winsome Marsh LCSW
--- NOTE | 2018-02-05 14:31 | ASMTCMCOM ---
CM Note CM Note Notes: [facility] is reporting that they can admit patient. His 3rd Medicare day will be Monday, so whenever the Medical team feels he is ready we can transport to [facility]. Date Signed: 02/05/2018 02:30 PM Electronically Signed By:Winsome Mrash LCSW
--- NOTE | 2018-02-05 19:25 | SOAPPROG ---
SOAP Progress Note Assessment/Plan: Assessment: 63-year-old diabetic with the bilateral lower extremity cellulitis and poor glucose control Status post debridement of his lower extremity wounds and cellulitis Afebrile, reasonably comfortable with pain medicine Chest clear/cor regular rhythm/abdomen soft nontender Plan: Dressing change in the a.m. 02/05/18 19:24 Objective: Vital Signs Temp Pulse Resp BP Pulse Ox 37.0 C 70 18 101/58 L 95 02/05/18 16:52 02/05/18 16:52 02/05/18 16:52 02/05/18 16:52 02/05/18 16:52 Microbiology 02/04/18 09:30 Gram Stain - Final Leg - Swab Laboratory Results 02/05/18 03:44 02/05/18 03:44 02/04/18 02/05/18 02/06/18 05:59 05:59 05:59 Intake Total 3712 6723 1910 Output Total 1200 2275 450 Balance 2512 4448 1460 PT 11.6 SEC (12.0-15.0) L 02/03/18 18:56 INR 0.83 (0.83-1.16) 02/03/18 18:56 ICD10 Worksheet Patient Problems: Problems Problem Status Onset Bilateral lower leg cellulitis Acute Homeless Acute Hyperglycemia Acute Uncontrolled diabetes mellitus Acute
--- NOTE | 2018-02-05 22:16 | GCON ---
[f rep st] CONSULTATION INPATIENT INFECTIOUS DISEASE CONSULTATION REFERRING PHYSICIAN: Pedro Pablo Boyd MD REASON FOR CONSULTATION: Bilateral lower extremity cellulitis. HISTORY OF PRESENT ILLNESS: Patient is a 63-year-old male who is homeless, who was admitted through the emergency room on 02/03/18. Patient is presenting complaint to the emergency room was of pain in both of his legs. He does have a history of uncontrolled diabetes and peripheral vascular disease. Patient was brought to the hospital by emergency medical service secondary to the lower extremity pa in, a foul odor, and decreased ability to ambulate. Patient had been seen a week and a half prior in the emergency room for the same complaint. Patient was seen and admitted and started empirically on ertapenem and vancomycin for possible lower extremity cellulitis. Patient was taken to the [facility] room by Dr. Sean Aguilera for debridement of necrotic skin lesions on the lower extremities. Angelika ent had his legs elevated and wrapped with Jose Armando bandages. Today, he states that his legs have never l ooks smaller in recent weeks. He denies any fevers or chills. Tolerating antibiotics without issue. PAST MEDICAL HISTORY: 1. Diabetes mellitus type 2. 2. Tobacco abuse. 3. Hypertension. PAST SURGICAL HISTORY: As above. ANTIBIOTICS: 1. Ertapenem. 2. Vancomycin. ALLERGIES: Patient has no known drug allergies. SOCIAL HISTORY: Patient is homeless. He ambulates with the help of a scooter. He smokes cigarettes and occasionally drinks alcohol. FAMILY HISTORY: Noncontributory. REVIEW OF SYSTEMS: Other than that detailed above in history of present illness, a comprehensive 10- system review is negative. PHYSICAL EXAMINATION: VITAL SIGNS: Temperature maximum is 37.6, temperature current is 37.0, heart rate is 66, respiratory rate is 18, blood pressure is 112/66. GENERAL: Patient is a well-formed, we ll-nourished, older male, in no acute distress. He is not toxic in appearance. He is alert and orie nted x3. He is pleasant in demeanor. HEENT: Normocephalic for age. Atraumatic. No scleral icteru s. No oral lesion or drainage from the nares. Eyes: Lids and conjunctivae are within normal limits . Pupils are equal and round bilaterally. NECK: Supple. No meningismus. LUNGS: Clear to auscult ation bilaterally with good effort. HEART: Regular rate and rhythm. No murmur, rub, or gallop note d. Patient does have peripheral edema 2 to 3+ bilaterally. SKIN: Warm and dry to the touch. Patie nt has no rash on the upper extremities or on the torso, but patient does have chronic venous stasis rash with open wounds on the bilateral anterior shins. There is not a lot of erythema currently in t he skin and soft tissue surrounding these open wounds. No significant malodor. MUSCULOSKELETAL: No muscle belly tenderness is noted. No joint line effusion or arthritis is seen. NEURO: Cranial ner ves 2-12 seem to be intact. Peripheral sensation seems decreased in extremities. LABORATORY DATA: Patient has a CBC dated 02/05/18, shows a white blood cell count of 8.2, hemoglobin of 12.8, hematocrit 39.8, and a platelet count of 182. Differential is within normal limits. Serum chemistries on 02/05/18, show sodium of 136, potassium 3.9, chloride of 108, bicarbonate of 23, BUN of 12 and creatinine of 0.6. Vancomycin trough on 02/05/18 is 14.6. MICROBIOLOGIC DATA: Patient has a leg swab from 02/04/18, which is showing group B strep and Pseudom onas putida. Blood cultures drawn on 02/03/18, are no growth to date. ASSESSMENT: Bilateral lower extremity wounds with minimal surrounding erythema. I suspect that thes e are not clearly infected. At present, he is covered on vancomycin and ertapenem. Vancomycin troug h level seems to be a bit high for soft tissue. Will discontinue vancomycin given lack of resistant gram-positive isolation. Patient is also on ertapenem, which could cover group B strep but unlikely to cover Pseudomonas putida. At this point, would continue the ertapenem just empirically for anothe r 24 hours, and if the legs continue to look good would discontinue antibiotics in their entirety and rely on wound care as well as compression and wraps going forward. PLAN: 1. Discontinue vancomycin. 2. Continue empiric ertapenem for another 24 hours and re-evaluate clinical status. /[id number]/MODL
[2018-02-06] MEDS: oxyCODONE IR 5 MG TAB PO PRN ×4 (04:18→22:20)
[2018-02-06 05:36] LABS: PLATELET COUNT 173 10^3/uL (150-400)
[2018-02-06] MEDS: INSULIN LISPRO 100 UNIT/ML SC SCH ×4 (09:21→17:55)
[2018-02-06] MEDS: ERTAPENEM 1 GM VIAL IV SCH (10:18)
[2018-02-06] MEDS: INSULIN GLARGINE 100 UNITS/ML UNIT SC SCH ×3 (10:19→23:02)
[2018-02-06] MEDS: LISINOPRIL 20 MG TAB PO SCH (10:26)
[2018-02-06] MEDS: GABAPENTIN 300 MG CAP PO SCH ×2 (10:26→20:16)
[2018-02-06] MEDS: ATENOLOL 25 MG TAB PO SCH (10:26)
[2018-02-06] MEDS: SENNOSIDES/DOCUSATE SODIUM TAB PO SCH ×2 (10:26→20:16)
[2018-02-06] MEDS: traMADol 50 MG TAB PO SCH ×2 (10:30→20:16)
--- NOTE | 2018-02-06 11:02 | HOSPPROG ---
Hospitalist Progress Note Assessment/Plan: Patient is a 63-year-old male who is homeless. He was seen in the emergency room complaining of pain in both his legs. There was concern for possible lower extremity site cellulitis the patient was started on ertapenem and vancomycin. Today is my 1st encounter with the patient. Chart reviewed. * Cellulitis vs chronic stasis ulcers, these are bilateral -will discuss with Infectious Disease physician but unclear if these are actually infected or if they are chronic ulcers -vancomycin was discontinued yesterday. Received four doses of ertapenem. -x-ray demonstrating no evidence of gas -ultrasound demonstrating no DVT -started on Cefepime today; has group A strep, Pseudomonas -appreciate wound care/ started Dakins solution to help dry it out * Uncontrolled diabetes mellitus type 2 with hyperglycemia. - Lantus 25 bid and Metformin -glucose 75 this morning * Metabolic acidosis. -resolved * Sepsis. Present on admission -resolved * Left bundle branch block. Chronic, per patient * HTN. Chronic, cont ACEi and b vicente *Plan; patient can go to [facility] soon, cont aggressive wound care along w Cefepime/ reviewed his care with Dr Meyers Subjective: Nick is c/o pain to his lower ext wounds. Objective: Vital Signs Temp Pulse Resp BP Pulse Ox 37.1 C 79 16 130/72 H 97 02/06/18 08:00 02/06/18 08:00 02/06/18 08:00 02/06/18 08:00 02/06/18 08:00 Microbiology 02/04/18 09:30 Gram Stain - Final Leg - Swab Laboratory Results 02/06/18 05:14 02/06/18 05:14 02/05/18 02/06/18 02/07/18 05:59 05:59 05:59 Intake Total 6723 2310 Output Total 2275 450 Balance 4448 1860 PT 11.6 SEC (12.0-15.0) L 02/03/18 18:56 INR 0.83 (0.83-1.16) 02/03/18 18:56 - Physical Exam Constitutional: chronically ill appearing, obese Eyes: PERRL Ears, Nose, Mouth, Throat: hearing normal Respiratory: no respiratory distress Skin: other (bilateral large wounds with purulent wet drainage, tissue on both legs is pink ) Musculoskeletal: generalized weakness Neurologic: AAOx3 Psychiatric: anxious ICD10 Worksheet Patient Problems: Problems Problem Status Onset Bilateral lower leg cellulitis Acute Homeless Acute Hyperglycemia Acute Uncontrolled diabetes mellitus Acute
[2018-02-06] MEDS ORDERED: SODIUM HYPOCHLORITE TP PRN ×2 (11:51→12:00)
[2018-02-06] MEDS: SILVER SULFADIAZINE 400 GM JAR TP SCH ×2 (12:29→21:53)
[2018-02-06] MEDS ORDERED: CEFEPIME HCL 2 GM in STERILE WATER INJ 12.5 ML IV SCH (14:00)
--- NOTE | 2018-02-06 14:14 | PCMIDPN ---
Assessment/Plan: Assessment/Plan: 1. Bilateral leg wound infections: - s/p debridement on 02/03 and 02/04 by surgery. appreciate assistance - cultures taken of purulent secretions, polymicrobial. copious purulent drainage today - Cultures with Pseudomonas, GBS, Enterococcus, danette - Currently on invanz. Given copious purulent drainage will broaden coverage to zosyn -appreciate wound care assistance in care -elevate LE -care coordinated with Rn, hospitalist team Medronald winter Subjective: afebrile. c/o pain involving both leg. denies sob, abd pain or diarrhea. Objective: Vital Signs Temp Pulse Resp BP Pulse Ox 37.1 C 79 16 130/72 H 97 02/06/18 08:00 02/06/18 08:00 02/06/18 08:00 02/06/18 08:00 02/06/18 08:00 Microbiology 02/04/18 09:30 Gram Stain - Final Leg - Swab Laboratory Results 02/06/18 05:14 02/06/18 05:14 02/05/18 02/06/18 02/07/18 05:59 05:59 05:59 Intake Total 6723 2310 Output Total 2275 450 525 Balance 4448 1860 -525 - Physical Exam General Appearance: alert, no apparent distress Respiratory: lungs clear Cardiac/Chest: regular rate, rhythm Extremities: swelling Abdomen: normal bowel sounds, non-tender, soft, No distended Skin: other (chronic venous stasis dermaitis b/l with multiple superfical wounds on anterior and posterior surface. Wounds have copious purulent drainage from them. tender to palpate.legs warm to touch. eschar noted.) ICD10 Worksheet Patient Problems: Problems Problem Status Onset Bilateral lower leg cellulitis Acute Homeless Acute Hyperglycemia Acute Uncontrolled diabetes mellitus Acute
[2018-02-06] MEDS: PIPERACILLIN/TAZO 4.5 GM/DEX 100 ML IV SCH ×3 (14:34→23:35)
--- NOTE | 2018-02-06 18:20 | WOCRNPDOC ---
JESUS Advanced Assessment Note - Skin Integrity Problem, Advanced Assess Bilateral Lower Leg Dressing Type: Open to Air (during assessment) Exudate Amount: Minimal Exudate Color: Reddish/Yellow Exudate Characteristic(s): Serosanguinous Integumentary Issue Intervention: Dressing Applied Radhika Wound Tissue: Erythema, Macerated, Raw, Swollen, Denuded, Venous Dermatitis , Painful/Tender Radhika Wound Swelling: Mild Wound Bed Color: Black, Red, Yellow Wound Bed Constitution: Red/Raven - Non Granular Tissue, Mixed Loose & Adhered Slough/Eschar Wound Edges: Irregular Site Odor: Strong Site Measurement - Head-to-Toe Length X Width X Depth (cm): see note Pulse Location & Description: +2, DP, bilaterally Skin Integrity Problem Comment: Diffuse, extensive wounds noted on bilateral lower extremities. Debridement of necrotic tissue initiated by Dr. Aguilera over the weekend, and there is decreased eschar during assessment today. There remain well-adhered areas of eschar and slough, especially along the right lateral aspect of the R leg and the posterior aspect of the L leg. Wounds are malodorous, pungent. Venous dermatitis and woody appearance around patient's ankles is indicative of long-standing venous insufficiency, though patient says the wounds started "a couple of weeks ago." Initiated dressing w/ Dakins solution today, which will hopefully reduce the odor and moisture, disrupt bioburden, and aid in the removal of slough/eschar. Patient would benefit from compression ongoing. Report given to [facility].
[2018-02-07] MEDS: PIPERACILLIN/TAZO 4.5 GM/DEX 100 ML IV SCH (06:15)
[2018-02-07] MEDS: LISINOPRIL 20 MG TAB PO SCH (09:07)
[2018-02-07] MEDS: GABAPENTIN 300 MG CAP PO SCH (09:07)
[2018-02-07] MEDS: SENNOSIDES/DOCUSATE SODIUM TAB PO SCH (09:07)
[2018-02-07] MEDS: ATENOLOL 25 MG TAB PO SCH (09:07)
[2018-02-07] MEDS: traMADol 50 MG TAB PO SCH (09:07)
[2018-02-07] MEDS: INSULIN LISPRO 100 UNIT/ML SC SCH ×2 (09:08→13:25)
[2018-02-07] MEDS: INSULIN GLARGINE 100 UNITS/ML UNIT SC SCH (09:09)
[2018-02-07] MEDS: ALBUTEROL 60 PUFFS/8 GM MDI IH PRN ×2 (09:21→13:25)
[2018-02-07] MEDS: oxyCODONE IR 5 MG TAB PO PRN (09:22)
--- NOTE | 2018-02-07 09:55 | PCMIDPN ---
Assessment/Plan: # B LE venous insufficiency wounds today without sign of infection, suspect severe wounds from venous insuffiency and Psa, GBS, tiffany and e faecalis are colonizers. Continue wound care. GANGA zosyn. Call ID for further questions Medications 3 Generic Name Dose Route Start Last Admin Trade Name Freq PRN Reason Stop Dose Admin Piperacillin/Tazobactam/Dextrose 4.5gm 02/06/18 14:30 02/07/18 06:15 Zosyn (Premix) IV 03/08/18 14:29 100 mls Q6HRS [facility] Microbiology 02/04/18 09:30 Leg - Swab Wound Culture - Preliminary Pseudomonas [place] Group, burris-S Strep Agalactiae Group B Tiffany Albicans Presumptive Enterococcus Faecalis Subjective: no specific c/o other than B LE pain. Objective: Vital Signs Temp Pulse Resp BP Pulse Ox 36.6 C 85 16 125/73 H 93 02/07/18 07:13 02/07/18 09:07 02/07/18 07:13 02/07/18 07:13 02/07/18 07:13 Microbiology 02/04/18 09:30 Gram Stain - Final Leg - Swab Laboratory Results 02/06/18 05:14 02/06/18 05:14 02/06/18 02/07/18 02/08/18 05:59 05:59 05:59 Intake Total 2310 200 450 Output Total 450 1225 550 Balance 1860 -1025 -100 - Physical Exam General Appearance: alert, no apparent distress Respiratory: wheezing, No accessory muscle use Neck: supple Cardiac/Chest: regular rate, rhythm Extremities: inflammation (multifocal ulcerations B LE posterior areas with small amount of bleeding, mild surrounding inflammation but no erythema, lymphangitis. Very tender but not out of proportion to extent of venous ulcerations. no purulence. ) Peripheral Pulses: 1+: dorsalis-pedis (R), dorsalis-pedis (L) Abdomen: non-tender, soft Skin: No rash Neuro/Psych: alert, normal mood/affect, oriented x 3 - Line/s PIV Lines: No drainage, No erythema - Time Spent With Patient Time Spent with Patient: greater than 35 minutes (care coordinated with hospitalist team, nursing) Time Spent with Patient: Greater than 35 minutes spent on this patients care, greater than 50% of time spent counseling, educating, and coordinating care regarding the above mentioned plan. ICD10 Worksheet Patient Problems: Problems Problem Status Onset Bilateral lower leg cellulitis Acute Homeless Acute Hyperglycemia Acute Uncontrolled diabetes mellitus Acute
[2018-02-07] MEDS: SILVER SULFADIAZINE 400 GM JAR TP SCH (10:02)
--- NOTE | 2018-02-07 11:44 | SOAPPROG ---
SOAP Progress Note Assessment/Plan: Assessment/Plan: 63 M poorly compliant, homeless, +DM, BLE venous stasis and cellulitis. Will d/w ID. Missed dressing change today. May need to return to view wounds. Palpable distal pulses. No erythema of feet or above his B calf dressings. Will need to see if further debridement is needed. 02/07/18 11:42 Objective: Vital Signs Temp Pulse Resp BP Pulse Ox 36.6 C 85 16 125/73 H 93 02/07/18 07:13 02/07/18 09:07 02/07/18 07:13 02/07/18 07:13 02/07/18 07:13 Microbiology 02/04/18 09:30 Gram Stain - Final Leg - Swab Laboratory Results 02/06/18 05:14 02/06/18 05:14 02/06/18 02/07/18 02/08/18 05:59 05:59 05:59 Intake Total 2310 200 450 Output Total 450 1225 800 Balance 1860 -1025 -350 PT 11.6 SEC (12.0-15.0) L 02/03/18 18:56 INR 0.83 (0.83-1.16) 02/03/18 18:56 ICD10 Worksheet Patient Problems: Problems Problem Status Onset Bilateral lower leg cellulitis Acute Homeless Acute Hyperglycemia Acute Uncontrolled diabetes mellitus Acute
--- NOTE | 2018-02-07 12:07 | HOSPPROG ---
Hospitalist Progress Note Assessment/Plan: Patient is a 63-year-old male who is homeless. He was seen in the emergency room complaining of pain in both his legs. There was concern for possible lower extremity site cellulitis the patient was started on ertapenem and vancomycin. * Cellulitis vs chronic stasis ulcers, these are bilateral -reviewed patient's care w ID, likely not infectious but has chronic leg wounds -look much better today -cont bid dressing changes at [facility] (Dakins solution) * Uncontrolled diabetes mellitus type 2 with hyperglycemia. -had some episodes of low glucoses now high, will change Lantus dosing - Lantus bid and Metformin -glucose 75 this morning * Metabolic acidosis. -resolved * Sepsis. Present on admission -resolved * Left bundle branch block. Chronic, per patient * HTN. Chronic, cont ACEi and b vicente *Plan; patient can go to [facility] soon, cont aggressive wound care Subjective: Kenny is having significant pain during wound dressing changes. Objective: Vital Signs Temp Pulse Resp BP Pulse Ox 36.6 C 85 16 125/73 H 93 02/07/18 07:13 02/07/18 09:07 02/07/18 07:13 02/07/18 07:13 02/07/18 07:13 Microbiology 02/04/18 09:30 Gram Stain - Final Leg - Swab Laboratory Results 02/06/18 05:14 02/06/18 05:14 02/06/18 02/07/18 02/08/18 05:59 05:59 05:59 Intake Total 2310 200 450 Output Total 450 1225 800 Balance 1860 -1025 -350 PT 11.6 SEC (12.0-15.0) L 02/03/18 18:56 INR 0.83 (0.83-1.16) 02/03/18 18:56 - Physical Exam Constitutional: appears nourished, No not in pain Eyes: PERRL Ears, Nose, Mouth, Throat: hearing normal Respiratory: no respiratory distress Skin: warm, other (bilateral lower extemity wounds, red and pink tissue, white drainage has almost resolved) Neurologic: AAOx3 Psychiatric: interacting appropriately ICD10 Worksheet Patient Problems: Problems Problem Status Onset Bilateral lower leg cellulitis Acute Homeless Acute Hyperglycemia Acute Uncontrolled diabetes mellitus Acute
[2018-02-07 12:08] VITALS: BP 119/74; PULSE 67; RESP 14; TEMP 98.1; O2SAT 95
--- NOTE | 2018-02-07 12:42 | PDIAF ---
- Diagnosis Diagnosis: biateral wounds w venous insufficiency Code Status: Full Code - Medication Management Discharge Medications: Medications to Continue on Transfer Acetaminophen [Tylenol ES 500 mg (*)] 500 mg PO Q6 PRN 02/03/18 [Last Taken Unknown] Albuterol [Ventolin Hfa Inhaler] 1 - 2 puffs IH Q4 PRN 02/03/18 [Last Taken Unknown] Atenolol [Tenormin 50 mg (*)] 50 mg PO DAILY 02/03/18 [Last Taken Unknown] Gabapentin [Neurontin 300 MG (*)] 300 mg PO BID 02/03/18 [Last Taken Unknown] Lidocaine [Lidoderm] 1 - 2 each TP DAILY PRN 02/03/18 [Last Taken Unknown] Lisinopril [Zestril 20 mg (*)] 20 mg PO DAILY 02/03/18 [Last Taken Unknown] Metformin HCl [Metformin 1000 mg] 1,000 mg PO BID 02/03/18 [Last Taken Unknown] traMADol [Ultram 50 mg (*)] 25 mg PO BID 02/03/18 [Last Taken Unknown] Insulin Glargine [Lantus Syringe] 15 units SC HS unit 02/07/18 [Last Taken Unknown] Insulin Glargine [Lantus Syringe] 25 units SC DAILY unit 02/07/18 [Last Taken Unknown] Insulin Lispro [HumaLOG LISPRO] 0 unit SC TIDMEAL unit 02/07/18 [Last Taken Unknown] Polyethylene Glycol 3350 [Miralax 17 gm (*)] 17 gm PO DAILY PRN pkt 02/07/18 [ Last Taken Unknown] Sennosides/Docusate Sodium [Senokot-S] 1 - 2 tab PO BID tab 02/07/18 [Last Taken Unknown] Silver Sulfadiazine [Thermazene (*)] 1 annabel TP BID cream 02/07/18 [Last Taken Unknown] Sodium Hypochlorite [Dakin's / Str] 5 ml TP BID PRN solution 02/07/18 [Last Taken Unknown] oxyCODONE IR [Oxycodone Ir (*)] 5 - 10 mg PO Q4HRS PRN tab 02/07/18 [Last Taken Unknown] Additional Medication Instructions: premedicate 30 minutes before dressing changes Discharge Medications: Refer to the Discharge Home Medication list for PRN reason. - Orders Services needed: Registered Nurse, Physical Therapy, Occupational Therapy Diet Recommendation: ADA 2200 consistent carb Diet Texture: Regular Texture Diet Wound Care Instructions: Dressing to bilateral lower extremities to be done BID by RN: 1) Open gauze boat (4x4) and moisten thoroughly with Dakins solution. 2 ) wring out excess, and apply to wounds on bilateral legs. 3)cover with ABD pads and secure with Kerlix and tape. 4) when removing dressings, apply sterile saline solution if needed to remove dressings if sticking to the wound - Follow Up Care Current Providers and Referrals: Patient,NotPresent [Unknown] - As per Instructions
--- NOTE | 2018-02-07 14:48 | GDS ---
[f rep st] DISCHARGE SUMMARY DISCHARGE DIAGNOSES: 1. Bilateral lower extremity insufficiency wounds. 2. Uncontrolled diabetes type 2. 3. Metabolic acidosis. 4. Sepsis. 5. Left bundle branch block. 6. Hypertension. CONSULTATION: 1. Dr. Lee Rascno. 2. Dr. Sean Aguilera. 3. Dr. Lazaro Monte. HISTORY OF PRESENT ILLNESS: Briefly the patient is a 63-year-old gentleman who is homeless, who was admitted out of concern of bilateral lower extremity cellulitis. He was having severe pain to his lower extremities. He was admitted and started on ertapenem and vancomycin. He was taken to the operating room by Dr. Aguilera for debridement of necrotic skin. Throughout his stay, there was concern about infection. He was seen and evaluated by the infectious disease team. They noted that his bilateral wounds were likely not infected. He has improved with aggressive wound dressing changes. He will be discharged to [facility] for further care. HOSPITAL COURSE PER PROBLEM: 1. Bilateral lower extremity venous insufficiency wounds. He will go to [facility]. He will get wound care twice a day. His legs look much better today. 2. Uncontrolled diabetes type 2. His glucoses have varied, and he has some hypoglycemia. His Lantus dose was decreased. We will have this resumed at the rehab facility. 3. Metabolic acidosis, resolved. 4. Sepsis, resolved. 5. Left bundle branch block. This is chronic per the patient. 6. Hypertension, on NHI inhibitor and beta vicente. DISCHARGE CONDITION: Stable. Blood pressure is 119/74, heart rate is 67, respiratory rate is 14, O2 sats on room air 95%, temperature is 36.7 Celsius. MEDICATIONS AT DISCHARGE: Please see the EMR. DISCHARGE INSTRUCTIONS: 1. Dressing changes twice daily. This was written out in detail for the rehab facility. 2. Glucose checks. He needs better control of his diabetes. Greater than 30 minutes discharging and coordinating the patient's care. /[id number]/MODL MTDD
--- NOTE | 2018-02-07 15:32 | ASMTCMCOM ---
CM Note CM Note Notes: Spoke w/pt, he states that when he was picked up from the [facility] on [address], he was at the [employer] and he had to leave his electric wheelchair. Pt reports that the people at the [employer] said they would keep it there. CM called Officer Mj from the HOT team who was able to drive to the [employer] in question, went into the [employer] but the chair is not there. CM asked pt about angel, states it is attached to chair. CM notified Pavan at and he will pass along this information to their SW. DC Plan: Marilu Carpenter Date Signed: 02/07/2018 03:31 PM Electronically Signed By:Kaylee Galloway RN
--- NOTE | 2018-02-07 17:06 | ASDISCHSUM ---
Discharge Information Plan Status:SNF Medically Cleared to Leave: Discharge Date:02/07/2018 03:21 PM D/C Disposition:[facility] ADT D/C Disposition:Other Rehab, Not [facility] Projected Discharge Date:02/09/2018 11:00 AM Transportation at D/C:ALS/BLS Discharge Delay Reason: Follow-Up Date:02/09/2018 11:00 AM Discharge Slot: Final Diagnosis:Bilateral LE Cellulitiss, Hyperglycemia Placement Information Referral Type:*Half-Way/SNF Referral ID:[id number] Provider Name: Address 1: Phone Number: Address 2: Fax Number: City: Selection Factors: State: Referral Type:*Half-Way/SNF Referral ID:[id number] Provider Name:Marilu Carpenter [facility] Address 1:[address] Address 2: City:[place] Selection Factors: State:[place] Patient Contact Information Contact Name:CONSUELO Relationship: Address: Home Phone: Work Phone: City: Alternate Phone: State/Zip Code: Email: Financial Information Financial Class:Medicare Primary Plan Desc:MEDICARE INPATIENT Primary Plan Number:[id number] Secondary Plan Desc: Secondary Plan Number: Assessment Information LACE LACE Length of stay for Answers: 3 days current admission Acuity / Level of Answers: Yes Care: Did the patient have an inpatient admission? Comorbidities - select Answers: Diabetes (uncontrolled or all that apply controlled) Other Notes: Bilateral LE Cellulitis, HTN, DM # of Emergency department Answers: 1-2 visits in the last 6 months Social determinants Answers: History of substance abuse (ETOH, street drugs, prescription drugs, etc.) Homelessness (street, snf) Lack of community resources and/or lack of social support (no pcp, lives alone, transportation, johann d) Score: 19 Date Signed: 02/07/2018 12:16 PM Electronically Signed By:Kaylee Galloway RN [facility] CM Progress Note CM Note CM Note Notes: 63yr old male admitted for Bilateral LE Cellulitis, Hyperglycemia. He has a Hx of homelessness, DM, HTN and a smoker. Patient to have his legs debrided. Therapies to eval. CM to follow for discharge needs. Date Signed: 02/04/2018 09:36 AM Electronically Signed By:Winsome Marsh LCSW [facility] CM Progress Note CM Note CM Note Notes: Therapies recommending that patient go to a SNF for wound care. Left message for Medicaid Specialist to do a Medicaid referral and LTC application. Referral sent to [facility]. Date Signed: 02/04/2018 03:48 PM Electronically Signed By:Winsome Marsh LCSW [facility] CM Progress Note CM Note CM Note Notes: Did not as yet send any referrals. Patient has worked in the past and may be collecting Social Security Disability, so may be on Medicare. If on Medicare, he would have more SNF choices to choose from. CM to check into this on Monday. ULTC-100 sent to [facility]. Date Signed: 02/04/2018 04:37 PM Electronically Signed By:Winsome Marsh LCSW [facility] CM Progress Note CM Note CM Note Notes: Patient has Medicare Part A so qualifies for SNF Rehab. Cancelled ACMI and our Medicaid specialist is working on Medicaid as a secondary ins. Contacted [facility] who will come and assess patient. Referral sent. Date Signed: 02/05/2018 11:30 AM Electronically Signed By:Winsome Marsh LCSW [facility] CM Progress Note CM Note CM Note Notes: [facility] is reporting that they can admit patient. His 3rd Medicare day will be Monday, so whenever the Medical team feels he is ready we can transport to [facility]. Date Signed: 02/05/2018 02:30 PM Electronically Signed By:Winsome Marsh LCSW [facility] CM Progress Note CM Note CM Note Notes: Spoke w/pt, he states that when he was picked up from the [facility] [address], he was at the [employer] and he had to leave his electric wheelchair. Pt reports that the people at the [employer] said they would keep it there. CM called Officer Mj from the HOT team who was able to drive to the [facility] in question, went into the [employer] but the chair is not there. CANDY asked pt about angel, states it is attached to chair. CANDY notified Pavan at and he will pass along this information to their SW. DC Plan: Marilu Carpenter Date Signed: 02/07/2018 03:31 PM Electronically Signed By:Kaylee Galloway RN Case Management Discharge Plan Note Case Management Discharge Discharge Order Complete? Answers: Yes Patient to Obtain Answers: Other Notes: Marilu Carpenter Medications Transportation Arranged Answers: [facility] will Pick (Date 02/07/2018 03:00 PM & Time) Case Management Transport Answers: Yes Form Complete Faxed Final Orders Answers: Yes Agency/Facility Transfer Answers: Yes Report Printed & Faxed to Receiving Agency Discharge Comments Notes: D/w [employer], final orders faxed, Pavan at notified, KAECY called report. Date Signed: 02/07/2018 03:34 PM Electronically Signed By:Kaylee Galloway RN Intervention Information
== END 2018-02-07 15:21 | DRG 872 ==
LOC: EDUNIT# → OBSVTOIN 19:46 → F2N 20:43 → F3E 02-05 16:32
PROVIDERS: ADMIT Internal Medicine; ATTEND Internal Medicine
PROC: 0HDLXZZ Extraction of Left Lower Leg Skin, External Approach (ICD-10-PCS; principal; 2018-02-03)
PROC: 0HDKXZZ Extraction of Right Lower Leg Skin, External Approach (ICD-10-PCS; principal; 2018-02-03)
DX: A41.9 Sepsis, unspecified organism (principal); E11.628 Type 2 diabetes mellitus with other skin complications; L03.115 Cellulitis of right lower limb; L03.116 Cellulitis of left lower limb; E87.2 Acidosis; I87.2 Venous insufficiency (chronic) (peripheral); I44.7 Left bundle-branch block, unspecified; E11.65 Type 2 diabetes mellitus with hyperglycemia; I10 Essential (primary) hypertension; Z59.0 Homelessness; Z72.0 Tobacco use; Z79.4 Long term (current) use of insulin
CPT/HCPCS: 96365; 97110-GP; 97161-GP; 97166-GO; 97530-GP; 97535-GO; J0692; J1170; J1335; J1815; J2270; J2543; J3370